=== PATIENT | female | born 1995 | race Caucasian/White ===

== ENCOUNTER 2016-03-30 11:58 | Emergency (ER) | payer OTHER ==
[~2016-03-30] VITALS: Ht 177.8 cm; Wt 68.0 kg
[~2016-03-30 11:58] MED LIST: ALBU0.086 INH; ALBU8I INH; NEBUMIS6 INH; VENTAER INH; ZOVI800T13 PO
[2016-03-30 12:00] VITALS: BP 113/71; PULSE 82; RESP 20; TEMP 99; O2SAT 97
[2016-03-30] MEDS ORDERED: MONT10TA2 PO (12:02)
[2016-03-30] MEDS ORDERED: DULE200A INH (12:02)
[2016-03-30] MEDS ORDERED: VENTAER INH (12:02)
[2016-03-30] MEDS ORDERED: RESP: ALBUTEROL 2.5 MG/IPRATROPIUM 0.5 MG NEB (SCH) NEB ONE (12:15)
[2016-03-30] MEDS ORDERED: predniSONE 20 MG TAB PO ONE (12:15)
--- NOTE | 2016-03-30 12:22 | PD ---
HPI Chief Complaint: Fever Time Seen by Provider: 12:10 Travel History International Travel<30 days: No Contact w/Intl Traveler<30days: No Traveled to known affect area: No History of Present Illness HPI The patient is a 20-year-old female who presents emergency department for cough and cold symptoms of 2 days' duration. Patient notes a fever at home as high as 103. The patient also complains of nasal congestion, sore throat, and a dry nonproductive cough. The patient does have a history of asthma, is currently on an inhaler twice a day as well as nebulizers as needed and Singulair daily. The patient does complain of bilateral rib pain and anterior chest wall pain worse with coughing, alleviated at rest. The patient denies any myalgias, nausea, vomiting, diarrhea, abdominal pain, or dysuria. 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 Symptoms are moderate, there are no known alleviating or exacerbating factors. PFSH Past Medical History Asthma: Yes Respiratory: Yes (asthma) Immunizations Current: Yes Tetanus Vaccination: > 5 Years Influenza Vaccination: No ?: Not LMP: 03/30/16 Past Surgical History Surgical History: No Previous Surgery Social History Alcohol Use: No Tobacco Use: No Substance Use: No Allergies-Medications (Allergen,Severity, Reaction): Coded Allergies: Phenergan (Verified Allergy, Unknown, HIVES, 03/30/16) Reported Meds & Prescriptions Reported Meds & Active Scripts Active Reported Dulera 120 Act Inh (Mometasone-Formoterol 120 Act Inh) 200-5 Mcg/Act Inh 2 Puff INH BID Ventolin Hfa 18 GM Inh (Albuterol Sulfate) 90 Mcg/Act Aer 2 Puff INH Q4H PRN Singulair (Montelukast Sodium) 10 Mg Tab 10 Mg PO HS Review of Systems Except as stated in HPI: all other systems reviewed are Neg General / Constitutional: Positive: Fever HENT: Positive: Headaches, Sore Throat, Congestion Cardiovascular: Positive: Chest Pain or Discomfort (with coughing, alleviated her rest) Respiratory: Positive: Cough, Wheezing, No: Shortness of Breath Gastrointestinal: No: Nausea, Vomiting, Diarrhea, Abdominal Pain Genitourinary: No: Urgency, Dysuria Musculoskeletal: No: Myalgias Skin: No Rash Physical Exam Narrative GENERAL: Awake, alert, pleasant 20-year-old female who appears her stated age and is in no acute respiratory distress. SKIN: Warm and dry. HEAD: Atraumatic. Normocephalic. EYES: Pupils equal and round. No scleral icterus. No injection or drainage. ENT: No nasal bleeding or discharge. Oropharynx reveals erythema but no exudate. TMs are translucent and EACs are clear. NECK: Trachea midline. No JVD. CARDIOVASCULAR: Regular rate and rhythm. No murmur appreciated. GASTROINTESTINAL: Abdomen soft, non-tender, nondistended. Hepatic and splenic margins not palpable. MUSCULOSKELETAL: No obvious deformities. No clubbing. No cyanosis. No edema. NEUROLOGICAL: Awake and alert. No obvious cranial nerve deficits. Motor grossly within normal limits. Normal speech. PSYCHIATRIC: Appropriate mood and affect; insight and judgment normal. Data Data Last Documented VS Vital Signs Date Time Temp Pulse Resp B/P Pulse Ox O2 Delivery O2 Flow Rate FiO2 03/30/16 13:26 75 16 121/70 99 Room Air 03/30/16 12:00 99.0 Orders Influenzae A/B Antigen (03/30/16 12:15) Chest, Single Ap (03/30/16 ) Prednisone (Deltasone) (03/30/16 12:15) Albuterol-Ipratropium Neb (Duoneb Neb) (03/30/16 12:15) MDM Medical Decision Making Medical Screen Exam Complete: Yes Emergency Medical Condition: Yes Medical Record Reviewed: Yes Interpretation(s) Last Impressions Chest X-Ray 03/30/16 0000 Signed Impressions: Service Date/Time: March 12:19 - CONCLUSION: No acute disease. Mercedez Bender MD Date/Time Procedure Status Source Growth 03/30/16 12:25 Influenza Types A,B Antigen (CLEMENCIA) - Final Complete Nasal Aspirate NEGATIVE FOR FLU A AND B ANTIGEN.... Differential Diagnosis Differential diagnosis includes influenza, viral syndrome, URI, bronchitis, pneumonia, reactive airway disease, asthma exacerbation. Narrative Course Influenza screen was sent to lab. Chest x-ray was obtained. The patient was administered prednisone 60 mg orally and DuoNeb 1. Chest x-ray was negative. Influenza screen is negative. The patient was reevaluated at 1:30 PM. The patient's symptoms have improved. The patient most likely has a viral bronchitis, however, she does have a history of asthma. Therefore, patient will be placed on prednisone for the next 4 days and advised not to use the asthma inhaler that contains steroids at home while she is on oral steroids. She will also be advised to use albuterol nebulizers every 4 hours while awake for the next 5 days and light activity with exercise. The patient agrees and understands to return if symptoms worsen or progress. Diagnosis Primary Impression: Bronchitis Additional Impression: Reactive airway disease with acute exacerbation Patient Instructions: General Instructions Additional Instructions: Medications as directed. Please provide the patient a copy of her influenza results and chest x-ray results at discharge. 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 Return if symptoms worsen or progress. Med/Other Pt SpecificInfo: Prescription(s) given Scripts Albuterol Neb 2.5 Mg/3 Ml Neb2.5 Mg NEB Q4HR NEB PRN (SHORTNESS OF BREATH) #60 NEBULE Ref 0 Prov:Landon Marie MD 03/30/16 Prednisone (Deltasone)20 Mg Tab40 Mg PO DAILY 4 Days Ref 0 Prov:Landon Marie MD 03/30/16 Disposition: 01 DISCHARGE HOME Condition: Stable Landon Marie MD Mar 30, 2016 12:22
--- NOTE | 2016-03-30 13:12 | RADRPT ---
EXAM DATE/TIME: 03/30/2016 12:19 [facility] COMPARISON: FOOT LEFT COMPLETE ([id number]), July 08, 2015, 12:44. INDICATIONS : Shortness of breath, history asthma. MEDICAL HISTORY : Asthma SURGICAL HISTORY : None. ENCOUNTER: Initial ACUITY: 1 day PAIN SCORE: 0/10 LOCATION: Bilateral chest FINDINGS: A single view of the chest demonstrates the lungs to be symmetrically aerated without evidence of mas s, infiltrate or effusion. The cardiomediastinal contours are unremarkable. Osseous structures are intact. CONCLUSION: No acute disease. Mercedez Bender MD on March 30, 2016 at 13:10 Board Certified Radiologist. This report was verified electronically.
[2016-03-30 13:26] VITALS: BP 121/70; PULSE 75; RESP 16; O2SAT 99
[2016-03-30] MEDS ORDERED: PRED-503 PO (13:35)
[2016-03-30] MEDS ORDERED: ALBU0.08 NEB (13:35)
== END 2016-03-30 14:40 | disposition home or self-care (01) ==
LOC: NETRI 11:58 → NEPA 14:40
DX: J40 Bronchitis, not specified as acute or chronic (principal); J45.901 Unspecified asthma with (acute) exacerbation
CPT/HCPCS: 71010; 87804; 94664; 99283; J7512

== ENCOUNTER 2016-08-23 10:58 | Emergency (ER) | payer OTHER ==
[~2016-08-23] VITALS: Ht 177.8 cm; Wt 66.0 kg
[~2016-08-23 10:58] MED LIST changes: +ALBU0.08 NEB; -ALBU0.086 INH; -ALBU8I INH; +DULE200A INH; +MONT10TA2 PO; -NEBUMIS6 INH; +PRED-503 PO; -ZOVI800T13 PO
[2016-08-23 10:59] VITALS: BP 121/75; PULSE 71; RESP 16; TEMP 99.1; O2SAT 100
[2016-08-23] MEDS ORDERED: PROPARACAINE HCL 0.5% OPHT SOLN 15 ML BTL EACH EYE ONE (11:15)
--- NOTE | 2016-08-23 11:28 | PD ---
HPI Chief Complaint: Eye Problems/Injury Time Seen by Provider: 11:20 Travel History International Travel<30 days: No Contact w/Intl Traveler<30days: No Traveled to known affect area: No History of Present Illness HPI 20-year-old female presents for evaluation of sore throat, cough, eye burning sensation. Symptoms started yesterday evening. Cough is nonproductive. She endorses some tearing, no green or yellow drainage or matting of the eyelids. Denies fevers, chills, contact use. She reports that she cleaned her shower with bleach some time ago and doesn't know if this is related to her symptoms. She did not smell any bleach when she was showering yesterday. No other complaints. PFSH Past Medical History Asthma: Yes Respiratory: Yes (ASTHMA) Immunizations Current: Yes ?: Not LMP: 08/08/16 Social History Alcohol Use: No Tobacco Use: Yes Substance Use: No Allergies-Medications (Allergen,Severity, Reaction): Coded Allergies: Phenergan (Verified Allergy, Unknown, HIVES, 08/23/16) Reported Meds & Prescriptions Reported Meds & Active Scripts Active Albuterol Neb (Albuterol Sulfate) 2.5 Mg/3 Ml Neb 2.5 Mg NEB Q4HR NEB PRN Reported Dulera 120 Act Inh (Mometasone-Formoterol 120 Act Inh) 200-5 Mcg/Act Inh 2 Puff INH BID Ventolin Hfa 18 GM Inh (Albuterol Sulfate) 90 Mcg/Act Aer 2 Puff INH Q4H PRN Singulair (Montelukast Sodium) 10 Mg Tab 10 Mg PO HS Review of Systems General / Constitutional: No: Fever, Chills Eyes: Positive: Other (BURNING SENSATION BILATERALLY) HENT: Positive: Sore Throat Respiratory: Positive: Cough Physical Exam Narrative GENERAL: Well-developed well-nourished female in no acute distress SKIN: Warm and dry. HEAD: Atraumatic. Normocephalic. EYES: Pupils equal and round reactive to light extraocular muscles are intact. Slight conjunctival injection bilaterally. PH 7 bilaterally. Wood's lamp is unremarkable. ENT: No nasal bleeding or discharge. Mucous membranes pink and moist. No oral pharyngeal erythema or exudate. NECK: Trachea midline. No JVD. No lymphadenopathy CARDIOVASCULAR: Regular rate and rhythm. No murmur appreciated. RESPIRATORY: No accessory muscle use. Clear to auscultation. Breath sounds equal bilaterally. Data Data Last Documented VS Vital Signs Date Time Temp Pulse Resp B/P Pulse Ox O2 Delivery O2 Flow Rate FiO2 08/23/16 10:59 99.1 71 16 121/75 100 Room Air Orders Proparacaine 0.5% Opth Soln (Alcaine 0.5 (08/23/16 11:15) Group A Rapid Strep Screen (08/23/16 11:32) Strep Culture (Group A) (08/23/16 11:30) MDM Medical Decision Making Medical Screen Exam Complete: Yes Emergency Medical Condition: Yes Medical Record Reviewed: Yes Differential Diagnosis Viral conjunctivitis, allergic conjunctivitis, chemical conjunctivitis, bacterial conjunctivitis, pharyngitis, bronchitis Narrative Course 20-year-old female with 1 day history of sore throat, cough, burning sensation in both eyes. She reports recently cleaning her shower with bleach, she did not smell any bleach when she showed last night. Plan is for rapid strep screen , Wood's lamp examination, pH of both eyes. The pH is normal. Wood's lamp is unremarkable. Rapid strep screen is negative. She appears to have a viral pharyngitis/conjunctivitis. She is stable for discharge. Diagnosis Primary Impression: Conjunctivitis Qualified Code: H10.33 - Acute conjunctivitis of both eyes, unspecified acute conjunctivitis type Additional Impression: Pharyngitis Qualified Code: J02.9 - Pharyngitis, unspecified etiology Additional Instructions: Stay well hydrated well-nourished. Take [id number] Tylenol or Motrin for discomfort. Return for any emergent medical conditions. Med/Other Pt SpecificInfo: No Change to Meds Disposition: 01 DISCHARGE HOME Condition: Stable Sean Edmondson Aug 23, 2016 11:28
== END 2016-08-23 12:13 | disposition home or self-care (01) ==
LOC: NEPK 10:58
DX: H10.33 Unspecified acute conjunctivitis, bilateral (principal); J02.9 Acute pharyngitis, unspecified; Z72.0 Tobacco use
CPT/HCPCS: 87081; 87880; 99283

== ENCOUNTER 2017-06-18 15:07 | Emergency (ER) | payer OTHER ==
[~2017-06-18] VITALS: Ht 179.1 cm; Wt 68.2 kg
[~2017-06-18 15:07] MED LIST changes: -PRED-503 PO
[2017-06-18 15:38] VITALS: BP 132/62; PULSE 70; RESP 18; TEMP 98.3; O2SAT 100
[2017-06-18] MEDS ORDERED: CEPH-460 PO (16:11)
[2017-06-18] MEDS ORDERED: MUPI2%T TOPICAL (16:11)
--- NOTE | 2017-06-18 16:14 | PD ---
HPI Chief Complaint: Skin Problem Time Seen by Provider: 16:10 Travel History International Travel<30 days: No Contact w/Intl Traveler<30days: No Traveled to known affect area: No History of Present Illness HPI 21-year-old female presents for evaluation of rash. Symptoms started 6 days ago. The rash is localized to the left axilla. The rash is painful, burning, worse with palpation. She denies any drainage, fevers or chills. She reports that she does shave her axilla on a regular basis. No other complaints at this time. PFSH Past Medical History Asthma: Yes Respiratory: Yes (ASTHMA) Immunizations Current: Yes ?: Not LMP: 06/05/2017 Social History Alcohol Use: No Tobacco Use: Yes Substance Use: No Allergies-Medications (Allergen,Severity, Reaction): Coded Allergies: promethazine (Unverified Allergy, Unknown, HIVES, 10/31/16) Reported Meds & Prescriptions Reported Meds & Active Scripts Active Bactroban Topical (Mupirocin) 22 Gm Cream 1 Applic TOPICAL TID 7 Days Keflex (Cephalexin) 500 Mg Capsule 500 Mg PO Q8H 7 Days Albuterol Neb (Albuterol Sulfate) 2.5 Mg/3 Ml Neb 2.5 Mg NEB Q4HR NEB PRN Reported Dulera 120 Act Inh (Mometasone-Formoterol 120 Act Inh) 200-5 Mcg/Act Inh 2 Puff INH BID Ventolin Hfa 18 GM Inh (Albuterol Sulfate) 90 Mcg/Act Aer 2 Puff INH Q4H PRN Singulair (Montelukast Sodium) 10 Mg Tab 10 Mg PO HS Review of Systems General / Constitutional: No: Fever, Chills Skin: Positive Rash, Positive Other (Positive for pain), No Itching Physical Exam Narrative GENERAL: Well-nourished female no acute distress SKIN: Warm and dry. Examination of the left axilla reveals multiple papular lesions as well as a 1-2 cm area of erythema and slight induration. No fluctuance or drainage. No axillary lymphadenopathy. CARDIOVASCULAR: Regular rate and rhythm. No murmur appreciated. RESPIRATORY: No accessory muscle use. Clear to auscultation. Breath sounds equal bilaterally. Data Data Last Documented VS Vital Signs Date Time Temp Pulse Resp B/P (MAP) Pulse Ox O2 Delivery O2 Flow Rate FiO2 06/18/17 15:38 98.3 70 18 132/62 (85) 100 Orders Orders Ed Discharge Order (06/18/17 16:11) MDM Medical Decision Making Medical Screen Exam Complete: Yes Emergency Medical Condition: Yes Medical Record Reviewed: Yes Differential Diagnosis Folliculitis, cellulitis, abscess, hydradenitis Narrative Course Examination is consistent with folliculitis and cellulitis of the left axilla. The patient will be discharged with Keflex and Bactroban cream. Diagnosis Primary Impression: Folliculitis Additional Impression: Cellulitis Additional Instructions: Medication as prescribed. Warm compresses several times a day 15 minutes at a time to the affected area. Return for any acutely new or worsening symptoms. Med/Other Pt SpecificInfo: Prescription(s) given Scripts Mupirocin Topical (Bactroban Topical) 22 Gm Cream 1 APPLIC TOPICAL TID for Mgmt Bacterial Infection for 7 Days, #1 TUBE 0 Refills Prov: Beltran Coon MD 06/18/17 Cephalexin (Keflex) 500 Mg Capsule 500 MG PO Q8H for Infection for 7 Days, #21 CAP 0 Refills Prov: Beltran Coon MD 06/18/17 Disposition: 01 DISCHARGE HOME Condition: Stable Sean Edmondson Jun 18, 2017 16:14
== END 2017-06-18 16:23 | disposition home or self-care (01) ==
LOC: NED 15:07 → NEPK 16:23
DX: L73.9 Follicular disorder, unspecified (principal); L03.112 Cellulitis of left axilla; J45.909 Unspecified asthma, uncomplicated; Z72.0 Tobacco use
CPT/HCPCS: 99283